=== PATIENT | female | born 1985 | race American Indian/Alaskan Native ===

== ENCOUNTER 2016-08-21 15:49 | Emergency (ER) | payer SELFPAY ==
[2016-08-21 16:01] VITALS: BP 127/79
[2016-08-21 16:14] LABS: Hematocrit 34.9 % (30.3-42.9); Hemoglobin 11.1 gm/dl (10.1-14.3); Mean Corpuscular HGB Conc 32 % (30-34); Mean Corpuscular Volume 76 fl (79-97); Platelet Count 349 K/mm3 (140-440); Red Blood Count 4.58 M/mm3 (3.65-5.03); Red Cell Distribution Width 16.2 % (13.2-15.2); White Blood Count 12.6 K/mm3 (4.5-11.0)
[2016-08-21 16:19] LABS: Mean Corpuscular Hemoglobin 24 pg (28-32)
[2016-08-21 16:33] LABS: Alanine Aminotransferase 17 units/L (7-56); Albumin 4.1 g/dL (3.9-5); Albumin/Globulin Ratio 1.3 %; Alkaline Phosphatase 54 units/L (35-129); Anion Gap 17 mmol/L; BUN/Creatinine Ratio 12.85; Blood Urea Nitrogen 9 mg/dL (7-17); Calcium 9.3 mg/dL (8.4-10.2); Carbon Dioxide 24 mmol/L (22-30); Chloride 101.9 mmol/L (98-107); Glucose 105 mg/dL (65-100); Lipase 37 units/L (13-60); Sodium 139 mmol/L (137-145); Total Protein 7.2 g/dL (6.3-8.2)
[2016-08-21 17:13] LABS: Bilirubin,Urine NEG (Negative); Blood,Urine NEG (Negative); Ketones,Urine NEG (Negative); Leukocyte Esterase,Urine NEG (Negative); Mucus,Urine FEW /HPF; Nitrite,Urine NEG (Negative); Protein,Urine <15 mg/dL mg/dL (Negative); WBC,Urine < 1.0 /HPF (0.0-6.0)
[2016-08-21 17:16] LABS: Basophils % (Manual) 0 % (0.0-1.8); Blastocytes % (Manual) 0 %
[2016-08-21 17:17] LABS: Anisocytosis 1+; Diff Status Complete; Hypochromasia 1+; Platelet Estimate Consistent w Auto
--- NOTE | 2016-08-24 10:01 | ED Elopement Review ---
ED Pt Elopement review - Results review Lab results: Laboratory Tests 08/21/16 08/21/16 08/21/16 16:02 16:02 16:50 WBC 12.6 H RBC 4.58 Hgb 11.1 Hct 34.9 MCV 76 L MCH 24 L MCHC 32 RDW 16.2 H Plt Count 349 Lymph # Risk Investigator Add Manual Diff Complete Total Counted 100 Seg Neuts % (Manual) 60.0 Band Neutrophils % 0 Lymphocytes % (Manual) 32.0 Reactive Lymphs % (Man) 0 Monocytes % (Manual) 6.0 Eosinophils % (Manual) 2.0 Basophils % (Manual) 0 Metamyelocytes % 0 Myelocytes % 0 Promyelocytes % 0 Blast Cells % 0 Nucleated RBC % Not Reportable Seg Neutrophils # Man 7.6 Band Neutrophils # 0.0 Lymphocytes # (Manual) 4.0 Abs React Lymphs (Man) 0.0 Monocytes # (Manual) 0.8 Eosinophils # (Manual) 0.3 Basophils # (Manual) 0.0 Metamyelocytes # 0.0 Myelocytes # 0.0 Promyelocytes # 0.0 Blast Cells # 0.0 WBC Morphology Not Reportable Hypersegmented Neuts Not Reportable Hyposegmented Neuts Not Reportable Hypogranular Neuts Not Reportable Smudge Cells Not Reportable Toxic Granulation Not Reportable Toxic Vacuolation Not Reportable Dohle Bodies Not Reportable Pelger-Huet Anomaly Not Reportable Keith Rods Not Reportable Platelet Estimate Consistent w auto Clumped Platelets Not Reportable Plt Clumps, EDTA Not Reportable Large Platelets Not Reportable Giant Platelets Not Reportable Platelet Satelliting Not Reportable Plt Morphology Comment Not Reportable RBC Morphology Not Reportable Dimorphic RBCs Not Reportable Polychromasia Not Reportable Hypochromasia 1+ Poikilocytosis Not Reportable Anisocytosis 1+ Microcytosis Not Reportable Macrocytosis Not Reportable Spherocytes Not Reportable Pappenheimer Bodies Not Reportable Sickle Cells Not Reportable Target Cells Not Reportable Tear Drop Cells Not Reportable Ovalocytes Not Reportable Helmet Cells Not Reportable Ashley-Murray Bodies Not Reportable [place] Rings Not Reportable [place] Cells Not Reportable Bite Cells Not Reportable Crenated Cell Not Reportable Elliptocytes Not Reportable Acanthocytes (Spur) Not Reportable Rouleaux Not Reportable Hemoglobin C Crystals Not Reportable Schistocytes Not Reportable Malaria parasites Not Reportable Agustín Bodies Not Reportable Hem Pathologist Commnt No Sodium 139 Potassium 4.0 Chloride 101.9 Carbon Dioxide 24 Anion Gap 17 BUN 9 Creatinine 0.7 Estimated GFR > 60 BUN/Creatinine Ratio 12.85 Glucose 105 H Calcium 9.3 Total Bilirubin 0.20 AST 14 ALT 17 Alkaline Phosphatase 54 Total Protein 7.2 Albumin 4.1 Albumin/Globulin Ratio 1.3 Lipase 37 Urine Color Yellow Urine Turbidity Clear Urine pH 6.0 Ur Specific [place] 1.023 Urine Protein <15 mg/dl Urine Glucose (UA) Neg Urine Ketones Neg Urine Blood Neg Urine Nitrite Neg Ur Reducing Substances Not Reportable Urine Bilirubin Neg Urine Ictotest Not Reportable Urine Urobilinogen 4.0 Ur Leukocyte Esterase Neg Urine WBC (Auto) < 1.0 Urine RBC (Auto) 5.0 U Epithel Cells (Auto) 2.0 Urine Mucus Few Urine HCG, Qual Negative - Call Back decision Pt Call Back Decision: No action required
== END 2016-08-21 21:10 | disposition left against medical advice (07) ==
LOC: ED 15:49
DX: R10.9 Unspecified abdominal pain (principal); R11.0 Nausea; N89.8 Other specified noninflammatory disorders of vagina; Z53.21 Procedure and treatment not carried out due to patient leaving prior to being seen by health care provider
CPT/HCPCS: 36415; 80053; 81001; 81025; 83690; 85007; 85025